=== PATIENT | female | born 1955 | race Caucasian/White ===

== ENCOUNTER 2019-11-25 15:13 | Outpatient (CLI) | payer MEDICARE ==
--- NOTE | 2019-11-25 15:50 | BD ---
BONE DENSITOMETRY: INDICATION: Postmenopausal screening. FINDINGS: Lumbar Spine: BMD (g/cm2) L1 0.770 T-Score: -2.0 L2 0.870 T-Score: -1.4 L3 0.837 T-Score: -2.2 L4 0.812 T-Score: -2.3 L1-L4 0.822 T-Score: -2.0 Femoral Neck: 0.586 T-Score: -2.4 Total Femur: 0.742 T-Score: -1.6 Impression: Bone mineral density of the lumbar spine and femoral neck both indicate osteopenia. Ten-year fracture risk: Major osteoporotic fracture: 19%. Hip fracture: 3.9%. POS: AH
== END 2019-11-25 15:14 | disposition home or self-care (01) ==
LOC: BICMAMMO 15:13
PROVIDERS: ATTEND Nurse Practitioner Family
DX: Z13.820 Encounter for screening for osteoporosis (principal); M85.89 Other specified disorders of bone density and structure, multiple sites
CPT/HCPCS: 77080